=== PATIENT | female | born 1950 | race Two or more races ===

== ENCOUNTER → 2023-09-05 | Outpatient (CLI) | payer OTHER ==
[~2023-09-05] VITALS: Ht 170.2 cm; Wt 55.3 kg
[~2023-09-05] MED LIST: REGADENOSON 0.4 MG/5 ML SYRG IV ONE
[2023-09-05] MEDS: REGADENOSON 0.4 MG/5 ML SYRG IV ONE (10:43)
== END | disposition home or self-care (01) ==
LOC: XYW 08:47
PROVIDERS: ATTEND Nurse Practitioner Family
DX: R06.02 Shortness of breath (principal); R55 Syncope and collapse; J44.9 Chronic obstructive pulmonary disease, unspecified; Z79.899 Other long term (current) drug therapy
CPT/HCPCS: 78452; 93017; A9500; J2785